=== PATIENT | male | born 1955 ===

== ENCOUNTER 2020-07-15 08:05 | Outpatient (CLI) | payer MEDICARE, OTHER, SELFPAY ==
--- NOTE | ~2020-07-15 | CT_ITS ---
EXAMINATION: CT lumbar spine wo con DATE: 07/15/2020 08:27 INDICATION: Scoliosis due to degenerative changes of spine. Low back pain. TECHNIQUE: Computed tomography (CT) of the lumbar spine was performed without intravenous contrast. A utomated exposure control and iterative reconstruction technique were employed. The dose-length produ ct was 819.79 mGy-cm. COMPARISON: None FINDINGS: There is 33 degrees levoscoliosis of lumbar spine. There is 3 mm anterolisthesis of L5 on S 1. There are changes of posterior fusion procedure from T10 to the sacrum and iliac bones with pedicl e screws. Vertebral body heights are normal. There is severely decreased disc height at T10-T11, mild ly decreased disc height at T11-T12 and T12-L1, moderately decreased disc height at L1-L2, severely d ecreased disc height at L2-L3 and L3-L4, and moderately decreased disc height at L5-S1. The following disc levels are specifically discussed: L1-L2: The disc is bulging. There is severe right and mild left facet joint hypertrophy. There is mod erate right and mild left neural foraminal stenosis. There is mild central canal stenosis. L2-L3: The disc is bulging. There is mild right and moderate left facet joint hypertrophy. There is m ild bilateral neural foraminal stenosis. There is mild central canal stenosis. L3-L4: The disc is bulging. There is mild right and moderate left facet joint hypertrophy. There is m ild right and moderate left neural foraminal stenosis. There is mild central canal stenosis. L4-L5: The disc is bulging. There is mild right and moderate left facet joint hypertrophy. There is m ild bilateral neural foraminal stenosis. There is mild central canal stenosis. L5-S1: The disc is bulging. There is mild bilateral facet joint hypertrophy. There is mild bilateral neural foraminal stenosis. There is mild central canal stenosis. IMPRESSION: 1. Severe lumbar spondylosis. 2. Lumbar levoscoliosis. 3. Posterior fusion procedure from T10 to the sacrum and iliac bones. Reviewed, dictated and finalized at location A. [employer]
== END 2020-07-15 08:06 | disposition home or self-care (01) ==
LOC: ANHIMG 08:11
DX: M48.062 Spinal stenosis, lumbar region with neurogenic claudication (principal); Z98.1 Arthrodesis status; M48.05 Spinal stenosis, thoracolumbar region; M48.07 Spinal stenosis, lumbosacral region; M47.817 Spondylosis without myelopathy or radiculopathy, lumbosacral region; M47.815 Spondylosis without myelopathy or radiculopathy, thoracolumbar region
CPT/HCPCS: 72131